=== PATIENT | male | born 1935 | race Caucasian/White ===

== ENCOUNTER 2020-06-07 06:24 | Day surgery (SDC) | payer MEDICARE ==
[2020-06-07] MEDS ORDERED: Lactated Ringers 1,000 ML IV SCH (07:00)
[2020-06-07] MEDS ORDERED: DIPRIVAN 200 MG/20 ML IV ONE ×2 (07:57→08:19)
[2020-06-07 09:35] VITALS: O2SAT 95
[2020-06-07 09:50] VITALS: BP 130/84; PULSE 72
--- NOTE | 2020-06-07 14:40 | OP ---
SURGERY DATE/TIME: 06/07/2020 0800 PREOPERATIVE DIAGNOSIS: Screening exam. POSTOPERATIVE DIAGNOSIS: Sigmoid diverticulosis otherwise normal colon. PROCEDURE: Colonoscopy. SURGEON: Dr. Solano. ANESTHESIA: MAC. Medications given by anesthesia department. HISTORY: The patient is an 85 year old white male who reports that he had a previous colonoscopy at age 67. He has not had anything done since then and he wishes to have his colon examined. The patient reports no unusual symptoms. He was appraised of the risks of the procedure including the risk of perforation, phlebitis, untoward reaction to medication, bleeding and missed lesions. The patient verbalized his understanding and desired to have the procedure performed. DESCRIPTION OF PROCEDURE: The patient was given the medications by the anesthesia department. He had continuous pulse oximetry, ECG monitoring, intermittent blood pressure monitoring and tidal CO2 monitoring during the examination. He was placed in the left lateral decubitus position. A digital rectal examination was performed and revealed normal anal sphincter tone and no masses and normal prostate. The flexible Olympus pediatric colonoscope was used to intubate the rectum. A view of the colon was developed sequentially to the cecum. Upon insertion and withdrawal, including a retroflex view in the rectum was noted moderate sigmoid diverticulosis. No other mucosal lesions were noted. The colon was noted to be quite long and tortuous. We were unable to see the appendiceal orifice but did identify the ileocecal valve. The scope was removed from the patient. He was taken to the recovery in good condition. The prep was noted to be fair to good.
== END 2020-06-07 09:30 | disposition home or self-care (01) ==
LOC: SDC 06:24
PROVIDERS: ATTEND Family Medicine
DX: Z12.11 Encounter for screening for malignant neoplasm of colon (principal); K57.30 Diverticulosis of large intestine without perforation or abscess without bleeding; E78.5 Hyperlipidemia, unspecified; I10 Essential (primary) hypertension; Z79.899 Other long term (current) drug therapy
CPT/HCPCS: 99100; J2704

== ENCOUNTER 2023-08-03 09:04 | Emergency (ER) | payer MEDICARE ==
--- NOTE | 2023-08-03 09:08 | ERPHSYRPT ---
- History of Present Illness Time Seen by Provider: 08/03/23 09:08 Source: patient, family Exam Limitations: no limitations Physician History: pt had several biopsies yesterday and this am he started bleeding at one of them on his chin and cannot get it to stop. Discussed risk/benefit of surgicel and emla , testing with CBC, CMP, PT PTT and pt wishes to proceed. He is on 1 baby ASA daily and no other blood thinners, no hx of CAD. No other medical complaints today. Timing/Duration: today Severity: moderate Associated Symptoms: denies symptoms Allergies/Adverse Reactions: No Known Drug Allergies Allergy (Verified 08/03/23 09:25) Home Medications: Amlodipine Besylate [Norvasc] 10 mg PO DAILY 05/11/20 [History] Aspirin EC 81 mg [Ecotrin 81 mg] 81 mg PO DAILY 05/11/20 [History] Furosemide 20 mg [Lasix 20 mg] 20 mg PO DAILY 05/11/20 [History] Metoprolol Succinate 50 mg [Toprol Xl 50 MG] 50 mg PO DAILY 05/11/20 [History] Potassium Chloride [Klor-Con 8] 8 meq PO DAILY 05/11/20 [History] Rosuvastatin Calcium [Crestor] 10 mg PO DAILY 05/11/20 [History] lisinopriL [Lisinopril] 40 mg PO DAILY 05/11/20 [History] - Review of Systems Constitutional: No Fever, No Chills Eyes: No Symptoms Ears, Nose, & Throat: No Symptoms Respiratory: No Cough, No Dyspnea Cardiac: No Chest Pain, No Edema, No Syncope Abdominal/Gastrointestinal: No Abdominal Pain, No Nausea, No Vomiting, No Diarrhea Genitourinary Symptoms: No Dysuria Musculoskeletal: No Back Pain, No Neck Pain Skin: Other (blleding from biopsy site chin), No Rash Neurological: No Dizziness, No Focal Weakness, No Sensory Changes Psychological: No Symptoms Endocrine: No Symptoms Hematologic/Lymphatic: Other (no prior symptoms) Immunological/Allergic: No Symptoms All Other Systems: Reviewed and Negative - Past Medical History Pertinent Past Medical History: Yes Neurological History: No Pertinent History ENT History: Cataracts Cardiac History: High Cholesterol, Hypertension Respiratory History: No Pertinent History Endocrine Medical History: No Pertinent History Musculoskeletal History: Arthritis GI Medical History: No Pertinent History, Hemorrhoids History: No Pertinent History Psycho-Social History: No Pertinent History Male Reproductive Disorders: Prostate Problems Other Medical History: prostate enlarged,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 - Past Surgical History Past Surgical History: Yes Neuro Surgical History: No Pertinent History Cardiac: No Pertinent History, Cardiac Catheterization Respiratory: No Pertinent History Gastrointestinal: Appendectomy Genitourinary: No Pertinent History Musculoskeletal: No Pertinent History Male Surgical History: No Pertinent History - Social History Smoking Status: Never smoker Exposure to second hand smoke: No Drug Use: none - Nursing Vital Signs Nursing Vital Signs: Initial Vital Signs Temperature 99.0 F 08/03/23 09:19 Pulse Rate 75 08/03/23 09:19 Blood Pressure 177/76 08/03/23 09:19 O2 Sat by Pulse Oximetry 91 L 08/03/23 09:19 Pain Scale Pain Intensity 0 - Physical Exam General Appearance: no apparent distress, alert Eye Exam: PERRL/EOMI, eyes nml inspection Ears, Nose, Throat Exam: normal ENT inspection, TMs normal, pharynx normal, moist mucous membranes Neck Exam: normal inspection, non-tender, supple, full range of motion Respiratory Exam: normal breath sounds, lungs clear, No respiratory distress Cardiovascular Exam: regular rate/rhythm, normal heart sounds, normal peripheral pulses Gastrointestinal/Abdomen Exam: soft, normal bowel sounds, No tenderness, No mass Rectal Exam: deferred Back Exam: normal inspection, normal range of motion, No CVA tenderness, No vertebral tenderness Extremity Exam: normal inspection, normal range of motion, pelvis stable Neurologic Exam: alert, oriented x 3, cooperative, normal mood/affect, nml cerebellar function, nml station & gait, sensation nml, No motor deficits Skin Exam: normal color, warm, dry, No rash Lymphatic Exam: No adenopathy SpO2 Interpretation: normal SpO2: 95 O2 Delivery: Room Air Procedures - Laceration/Wound Repair Neck Time of Procedure: 10:33 Wound Location: neck Wound Length (cm): 1 Wound's Depth, Shape: superficial Wound Explored: clean Irrigated: Yes Hibiclens Prep: Yes Anesthesia: topical, 2% Lidocaine Volume Anesthetic (ccs): 2 Wound Debrided: minimal Wound Repaired With: sutures Suture Size/Type: 3-0, nylon Number of Sutures: 1 (figure of 8 ) Layer Closure?: No Sterile Dressing Applied?: Yes Splint Applied?: No Sling Applied?: No - Course Nursing assessment & vital signs reviewed: Yes Ordered Tests: Active Orders 24 hr Category Date Time Status CBC W DIFF Stat Lab 08/03/23 09:55 Completed CMP Stat Lab 08/03/23 09:55 Completed PT INR [PROTIME WITH INR] Stat Lab 08/03/23 09:55 Completed PTT Stat Lab 08/03/23 09:55 Completed Medication Summary Discontinued Medications Generic Name Dose Route Start Last Admin Trade Name Alessandra PRN Reason Stop Dose Admin Diphtheria/Tetanus/Acell Pertussis 0.5 ml 08/03/23 11:00 08/03/23 11:04 Tdap --Diph,Pertuss(Acell),Tet Vac/Pf 0.5 Ml Vial IM 08/03/23 11:01 0.5 ml .ONCE ONE Administration Diphtheria/Tetanus/Acell Pertussis Confirm 08/03/23 11:03 Tdap --Diph,Pertuss(Acell),Tet Vac/Pf 0.5 Ml Vial Administered 08/03/23 11:04 Dose 0.5 ml IM .STK-MED ONE Lidocaine/Epinephrine Confirm 08/03/23 09:30 Lidocaine Hcl/Epinephrine 2% 20 Ml Mdv Administered 08/03/23 09:31 Dose 5 ml IJ .STK-MED ONE Lidocaine/Epinephrine 5 ml 08/03/23 09:50 08/03/23 10:23 Lidocaine Hcl/Epinephrine 2% 20 Ml Mdv IJ 08/03/23 09:51 5 ml STAT ONE Administration Lidocaine/Prilocaine 2.5 gm 08/03/23 09:13 08/03/23 10:21 Lidocaine/Prilocaine 5 Gm 5 Gm Tube TP 08/03/23 09:14 2.5 gm STAT ONE Administration Lidocaine/Prilocaine Confirm 08/03/23 09:12 Lidocaine/Prilocaine 5 Gm 5 Gm Tube Administered 08/03/23 09:13 Dose 5 gm TP .STK-MED ONE Silver Nitrate Confirm 08/03/23 09:48 Silver Nitrate 1 Pkt Each Administered 08/03/23 09:49 Dose 2 pkt TP .STK-MED ONE Silver Nitrate 2 pkt 08/03/23 09:54 08/03/23 10:24 Silver Nitrate 1 Pkt Each TP 02/03/24 09:55 2 pkt STAT STA Administration Lab/Rad Data: Laboratory Result Diagrams 08/03/23 09:55 08/03/23 09:55 Laboratory Results 08/03/23 08/03/23 08/03/23 Range/Units 09:55 09:55 09:55 WBC 5.6 (4.0-10.5) x10^3/uL RBC 5.19 (4.1-5.6) x10^6/uL Hgb 15.9 (12.5-18.0) g/dL Hct 49.4 (42-50) % MCV 95.2 (78-100) fL MCH 30.6 (26-32) pg MCHC 32.2 (32-36) g/dL RDW 14.0 (11.5-14.0) % Plt Count 146 L (150-450) x10^3/uL MPV 9.7 (7.5-11.0) fL Gran % 69.5 H (36.0-66.0) % Immature Gran % (Auto) 0.4 (0.00-0.4) % Nucleat RBC Rel Count 0.0 (0.00-0.1) % Eos # (Auto) 0.07 (0-0.5) x10^3/uL Immature Gran # (Auto) 0.02 (0.00-0.03) x10^3u/L Absolute Lymphs (auto) 1.09 (1.0-4.6) x10^3/uL Absolute Monos (auto) 0.49 (0.0-1.3) x10^3/uL Absolute Nucleated RBC 0.00 (0.00-0.01) x10^3u/L Lymphocytes % 19.6 L (24.0-44.0) % Monocytes % 8.8 (0.0-12.0) % Eosinophils % 1.3 (0.00-5.0) % Basophils % 0.4 (0.0-0.4) % Absolute Granulocytes 3.87 (1.4-6.9) x10^3/uL Basophils # 0.02 (0-0.4) x10^3/uL PT 11.8 (9.4-12.5) SECONDS INR 1.09 (0.8-3.0) APTT 26.8 (25.1-36.5) SECONDS Sodium 138 (137-145) mmol/L Potassium 4.1 (3.5-5.1) mmol/L Chloride 101 (98-107) mmol/L Carbon Dioxide 34 H (22-30) mmol/L Anion Gap 6.8 (5-15) MEQ/L BUN 17 (9-20) mg/dL Creatinine 0.67 (0.66-1.25) mg/dL Estimated GFR 90.9 ML/MIN Glucose 121 H (74-106) mg/dL Calcium 8.8 (8.4-10.2) mg/dL Total Bilirubin 1.10 (0.2-1.3) mg/dL AST 31 (17-59) U/L ALT 29 (0-50) U/L Alkaline Phosphatase 55 (38-126) U/L Serum Total Protein 7.4 (6.3-8.2) g/dL Albumin 4.2 (3.5-5.0) g/dL - Progress Progress: improved, re-examined Progress Note: 08/03/23 10:30 the bleeding could not be stopped with local epi lido or surgicell x 2 so we had to use figure of 8 suture to control it. THis was done after discussions of risk/benefits and in [facility] case he agreed to proceed. 08/03/23 11:01 recheck confirms no more bleeding and no swelling in SQ. Discussed risk/benefit of bactroban and pt wishes to proceed. 08/03/23 11:20 pulse ox 95 RA after adjustment recheck Counseled pt/family regarding: lab results, diagnosis, need for follow-up Medical Desision Making - Independent Historian Additional History obtained from: Spouse - Discussion of managment Reviewed:: Test results, Need for additional workup Agreed on:: Treatment plan, need for follow-up - Diagnostic Testing Diagnostic test were ordered, analyzed, and reviewed by me: Yes Radiological Interpretation: Reviewed by me - Risk of complications The pt has a mod risk of morbidity or mortality based on: Need for prescription drug management - Departure Departure Disposition: Home Clinical Impression: bleeding after biopsy Condition: Good Critical Care Time: No Referrals: COLBY FLORENCE MD [Primary Care Provider] - Follow up/PCP as directed Instructions: Laceration Repair With Stitches ED, Laceration Repair With Stitches (DC) Additional Instructions: see your DrReed to follow-up blood pressure and recheck wound. have stitches removed after 10-14 days. Return meantime if furhter bleeding, redness, swelling short of breath, trouble swallowing or any other concerns. Prescriptions: Mupirocin [Bactroban OINTMENT] 22 gm TP BID 14 Days #1 cartridge
[2023-08-03] MEDS ORDERED: EMLA Cream 5 GM TP ONE (09:12)
[2023-08-03 09:25] VITALS: TEMP 99
[2023-08-03] MEDS ORDERED: Xylocaine 2%-Epi 1:100,000 MDV IJ ONE (09:30)
[2023-08-03] MEDS ORDERED: ARZOL Silver Nitrate Applicator TP ONE (09:48)
[2023-08-03 10:05] LABS: Absolute Neutrophil Ct (ANC) 3.87 x10^3/uL (1.4-6.9); BASOPHIL % 0.4 % (0.0-0.4); Basophil (Absolute #) 0.02 x10^3/uL (0-0.4); Eosinophil % 1.3 % (0.00-5.0); Eosinophil (Absolute #) 0.07 x10^3/uL (0-0.5); Hematocrit 49.4 % (42-50); Hemoglobin 15.9 g/dL (12.5-18.0); IMMATURE GRAN # 0.02 x10^3u/L (0.00-0.03); IMMATURE GRAN % 0.4 % (0.00-0.4); Lymphocyte (Absolute #) 1.09 x10^3/uL (1.0-4.6); Lymphocytes % 19.6 % (24.0-44.0); Mean Cell Volume 95.2 fL (78-100); Mean Corpuscular Hemoglobin 30.6 pg (26-32); Mean Corpuscular Hgb Concent. 32.2 g/dL (32-36); Mean Platelet Volume 9.7 fL (7.5-11.0); Monocyte (Absolute #) 0.49 x10^3/uL (0.0-1.3); Monocytes % 8.8 % (0.0-12.0); Neutrophil % 69.5 % (36.0-66.0); Platelet Count 146 x10^3/uL (150-450); Red Blood Count 5.19 x10^6/uL (4.1-5.6); White Blood Count 5.6 x10^3/uL (4.0-10.5)
[2023-08-03 10:18] LABS: ALBUMIN 4.2 g/dL (3.5-5.0); ANION GAP 6.8 MEQ/L (5-15); BILIRUBIN,TOTAL 1.1 mg/dL (0.2-1.3); Calcium 8.8 mg/dL (8.4-10.2); Creatinine 1 0.67 mg/dL (0.66-1.25); EST GLOMERULAR FILTRATION RATE 90.9 ML/MIN; Potassium 4.1 mmol/L (3.5-5.1); Total Protein 7.4 g/dL (6.3-8.2)
[2023-08-03] MEDS: EMLA Cream 5 GM TP ONE (10:21)
[2023-08-03] MEDS: Xylocaine 2%-Epi 1:100,000 MDV IJ ONE (10:23)
[2023-08-03] MEDS: ARZOL Silver Nitrate Applicator TP STA (10:24)
[2023-08-03 10:39] LABS: INR 1.09 (0.8-3.0); PROTIME 11.8 SECONDS (9.4-12.5); PTT 26.8 SECONDS (25.1-36.5)
[2023-08-03] MEDS ORDERED: Adacel Vial IM ONE (11:03)
[2023-08-03] MEDS: Adacel Vial IM ONE (11:04)
[2023-08-03 11:13] VITALS: BP 117/61
[2023-08-03 11:32] VITALS: PULSE 72; RESP 18; O2SAT 96
== END 2023-08-03 11:35 | disposition home or self-care (01) ==
LOC: ED 09:04
DX: L76.21 Postprocedural hemorrhage of skin and subcutaneous tissue following a dermatologic procedure (principal); E78.5 Hyperlipidemia, unspecified; I10 Essential (primary) hypertension; Z79.899 Other long term (current) drug therapy; Z23 Encounter for immunization
CPT/HCPCS: 12001; 36415; 80053; 85025; 85610; 85730; 90471; 90715; 99283; A9270-GY